=== PATIENT | female | born 2000 | race African-American/Black ===

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

== ENCOUNTER 2019-07-02 11:51 | Emergency (ER) | payer MEDICAID, OTHER ==
[2019-07-02 12:06] VITALS: BP 120/70
--- NOTE | 2019-07-02 12:14 | UC ---
Throat Pain/Nasal Terence HPI - HPI Summary HPI Summary: fever x 1 day chills, body aches, fatigue, having headaches denies any cough , no sore throat, was diagnosed with UTI yesterday , is on bactrim DS no abdominal pain , no flank pain , no n/v/d/c - History of Current Complaint Chief Complaint: UCGeneralIllness Stated Complaint: FEVER,CHILLS,HEADACHE Time Seen by Provider: 07/02/19 12:08 Hx Obtained From: Patient Hx Last Menstrual Period: 06/23/19 ?: No Onset/Duration: Gradual Onset, Lasting Days - 1, Still Present Severity: Moderate Pain Intensity: 7 Cough: None Associated Signs & Symptoms: Positive: Fever. Negative: Wheezing, Hoarseness, Sinus Discomfort, Nasal Discharge, Rash - Allergies/Home Medications Allergies/Adverse Reactions: Allergies Allergy/AdvReac Type Severity Reaction Status Date / Time No Known Allergies Allergy Verified 07/02/19 12:04 Home Medications: Home Medications Acetaminophen [Tylenol Extra Strength] 1,000 mg PO ONCE PRN 07/02/19 [History Confirmed 07/02/19] Sulfamethox/Trimethoprim DS* [Bactrim DS 800/160 TAB*] 1 tab PO BID 07/02/19 [ History Confirmed 07/02/19] PMH/Surg Hx/FS Hx/Imm Hx Previously Healthy: Yes - Surgical History Surgical History: None - Family History Known Family History: Positive: Cardiac Disease, Hypertension, Diabetes - Social History Alcohol Use: Occasionally Substance Use Type: None Smoking Status (MU): Never Smoked Tobacco Review of Systems All Other Systems Reviewed And Are Negative: Yes Constitutional: Positive: Fever, Chills, Fatigue Skin: Positive: Negative Eyes: Positive: Negative ENT: Positive: Negative Respiratory: Positive: Negative Cardiovascular: Positive: Negative Genitourinary: Positive: Hematuria Motor: Positive: Negative Is Patient Immunocompromised?: No Physical Exam Triage Information Reviewed: Yes Appearance: Well-Appearing, No Pain Distress, Well-Nourished Vital Signs: Initial Vital Signs Temp 98.2 F 07/02/19 12:02 Pulse 107 07/02/19 12:02 Resp 15 07/02/19 12:02 BP 120/70 07/02/19 12:02 Pulse Ox 99 07/02/19 12:02 Vital Signs Reviewed: Yes Eye Exam: Normal Eyes: Positive: Conjunctiva Clear ENT: Positive: Normal ENT inspection, Hearing grossly normal, Pharynx normal Neck: Positive: Supple, Nontender, No Lymphadenopathy Respiratory: Positive: Chest non-tender, Lungs clear, Normal breath sounds Cardiovascular: Positive: Tachycardia Abdominal Exam: Normal Abdomen Description: Positive: Nontender, Soft. Negative: CVA Tenderness (R), CVA Tenderness (L), Distended, Guarding Bowel Sounds: Positive: Present Throat Pain/Nasal Course/Dx - Differential Dx/Diagnosis Provider Diagnosis: Viral illness Discharge ED - Sign-Out/Discharge Documenting (check all that apply): Patient Departure All imaging exams completed and their final reports reviewed: No Studies - Discharge Plan Condition: Stable Disposition: HOME Patient Education Materials: Viral Syndrome (ED) Referrals: No Primary Care Phys,NOPCP [Primary Care Provider] - If Needed - Billing Disposition and Condition Condition: STABLE Disposition: Home
[2019-07-02 12:25] LABS: Influenza A Molecular Negative (Negative); Influenza B Molecular Negative (Negative)
== END 2019-07-02 12:37 | disposition home or self-care (01) ==
LOC: UCCORT 11:51
DX: B34.9 Viral infection, unspecified (principal); R68.83 Chills (without fever); R53.83 Other fatigue; R51 Headache; R31.9 Hematuria, unspecified
CPT/HCPCS: 99211; G0463